=== PATIENT | female | born 1975 | race Caucasian/White ===

== ENCOUNTER 2018-01-08 16:57 | Emergency (ER) | payer BC, OTHER ==
--- NOTE | 2018-01-08 17:12 | EDPHY ---
HPI/HX/ROS/PE/MDM Narrative: CHIEF COMPLAINT: Needle stick HISTORY OF PRESENT ILLNESS: The patient is a 43 y/o female complaining of a needle stick to her right 3rd digit in the OR today just prior to evaluation. The needle is solid and she immediately cleaned the prick site. The patient she was preforming surgery on is an IV drug user who has multiple sex partners. Source patients HIV status unknown REVIEW OF SYSTEMS: Aside from elements discussed in the HPI, a comprehensive 10-point review of systems was reviewed and is negative. PAST MEDICAL HISTORY: Denies SOCIAL HISTORY: Employed at [employer], lives in [place], [facility] VITAL SIGNS: Reviewed by me GENERAL: Well-developed, well-nourished, resting comfortably in no respiratory distress. EXTREMITIES: No active bleeding from right 3rd digit. No edema. Range of motion is normal throughout. NEURO: Alert and oriented, grossly nonfocal. SKIN: Warm and dry, no rash. PSYCHIATRIC: Normal mentation, no agitation. Portions of this note were transcribed by a medical imaging director. I personally performed a history, physical exam, medical decision making, and confirmed accuracy of information the transcribed note. ED Course: The patient is a 43 y/o female presenting with a solid needle stick to her right 3rd digit in the OR today. There is no active bleeding from the needle stick site. Labs have been sent on the source patient previously. Source patient is HIV negative, hepatitis-C positive. Dr. Italia Burton from Infectious diseases aware. Viral loads testing has been sent on the source patient. I discussed these results with the patient. The she understands that further advice and recommendations will depend on the viral load of the source patient. She will follow up with Dr. Burton early next week. Baseline labs for post exposure treatment have been sent on the patient. MDM: Differential diagnosis considered included but not limited to post exposure prophylaxis for HIV, post exposure evaluation, laceration of the finger, puncture wound. - Data Points Laboratory Results: Laboratory Results 01/08/18 17:16 01/08/18 17:16 General Time Seen by Provider: 01/08/18 17:10 Allergies/Adverse Reactions: No Known Allergies Allergy (Unverified 01/08/18 17:34) Home Medications: Medication Instructions Recorded Calcium 01/08/18 Departure - Departure Disposition: Home, Routine, Self-Care Clinical Impression: Exposure to bloodborne pathogen Needle stick injury of finger of right hand Qualifiers: Encounter type: initial encounter Qualified Code(s): S61.239A - Puncture wound without foreign body of unspecified finger without damage to nail, initial encounter; W27.3XXA - Contact with needle (sewing), initial encounter; W27.3XXA - Contact with needle (sewing), initial encounter Condition: Good Instructions: Needle Stick Injuries (ED) Additional Instructions: Follow up with Dr. Burton. Referrals: Italia Burton MD [Medical Doctor] - As per Instructions (Please follow up with Dr. Burtno next week after . You may call her cell phone as needed.) Report Scribed for: Ernestina Miles Report Scribed by: Anju Guy Date of Report: 01/08/18 Time of Report: 17:12
[2018-01-08 17:32] LABS: PLATELET COUNT 248 10^3/uL (150-400)
[2018-01-08 17:44] LABS: INR 0.97 (0.83-1.16); PROTIME(PATIENT) 13.1 SEC (12.0-15.0)
[2018-01-08 20:27] LABS: HEPATITIS C ANTIBODY TOTAL NEGATIVE (NEGATIVE)
== END 2018-01-08 17:34 | disposition home or self-care (01) ==
DX: S61.232A Puncture wound without foreign body of right middle finger without damage to nail, initial encounter (principal); Z77.21 Contact with and (suspected) exposure to potentially hazardous body fluids; W27.3XXA Contact with needle (sewing), initial encounter; Y99.8 Other external cause status; Y93.89 Activity, other specified
CPT/HCPCS: G0472

== ENCOUNTER → 2018-02-26 | Outpatient (CLI) | payer OTHER | LOC: FIMAGING 13:19 | PROVIDERS: ATTEND Internal Medicine | DX: Z12.31 Encounter for screening mammogram for malignant neoplasm of breast (principal) ==